=== PATIENT | female | born 1995 | race Caucasian/White ===

== ENCOUNTER 2017-12-09 17:44 | Emergency (ER) | payer OTHER ==
[~2017-12-09] VITALS: Ht 162.6 cm; Wt 68.0 kg
[2017-12-09 19:14] VITALS: BP 111/67; PULSE 80; RESP 16; TEMP 98.1; O2SAT 99
[2017-12-09] MEDS ORDERED: IBUP1TAB7 PO (20:23)
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
== END 2017-12-09 21:08 | disposition home or self-care (01) ==
LOC: NEPK 17:44
DX: S01.111A Laceration without foreign body of right eyelid and periocular area, initial encounter (principal); W50.0XXA Accidental hit or strike by another person, initial encounter
CPT/HCPCS: 12011